=== PATIENT | male | born 1935 ===

== ENCOUNTER 2017-11-06 09:00 | Inpatient (IN) | payer OTHER, BC ==
[2017-11-05 16:09] VITALS: BMI 26.1
[2017-11-06 09:49] LABS: BASO % 0.4 % (0-2.0); EOS % 0.5 % (0-4.5); HEMATOCRIT 36.5 % (35.4-49); HEMOGLOBIN 11.9 GM/dL (11.7-16.9); LYMPH % 15.8 % (8-40); MCHC 32.6 g/dl (32.0-35.9); MEAN CELL VOLUME 92.2 fl (80-96); MEAN PLT VOLUME 9.7 fl (7.5-11.1); MONO % 8.5 % (3.8-10.2); NEUT % 74.8 % (42.8-82.8); PLATELET COUNT 175 K/MM3 (134-434); RBC 3.96 M/mm3 (4.00-5.60); RDW 16.9 % (11.9-15.9); WHITE BLOOD COUNT 11.2 K/mm3 (4.0-10.0)
[2017-11-06 10:08] LABS: INR 0.96 (0.82-1.09); PROTHROMBIN TIME (PATIENT) 10.9 SEC (9.98-11.88)
[2017-11-06 10:18] LABS: ALBUMIN 3.8 g/dl (3.4-5.0); ANION GAP 11 (8-16); BLOOD UREA NITROGEN 33 mg/dL (7-18); CALCIUM 8.9 mg/dL (8.5-10.1); CHLORIDE 108 mmol/L (98-107); CO2 21 mmol/L (21-32); CREATININE 1.9 mg/dL (0.7-1.3); GLUCOSE,RANDOM 99 mg/dL (74-106); POTASSIUM 4.7 mmol/L (3.5-5.1); SGOT/AST 23 U/L (15-37); SGPT/ALT 39 U/L (12-78); SODIUM 140 mmol/L (136-145)
[2017-11-06 10:21] LABS: ALK PHOS 90 U/L (45-117); TOT PROT 6.5 g/dl (6.4-8.2)
[2017-11-06] MEDS ORDERED: ROCURONIUM BROMIDE 50 MG/5 ML VIAL ONE (10:31)
[2017-11-06] MEDS ORDERED: MIDAZOLAM HCL 2 MG/2 ML SINGLE DOSE VIAL ONE (10:32)
[2017-11-06] MEDS ORDERED: SUCCINYLCHOLINE CHLORIDE 200 MG/10 ML VIAL ONE (10:32)
[2017-11-06] MEDS ORDERED: fentaNYL CITRATE 250 MCG/5 ML VIAL ONE (10:32)
[2017-11-06] MEDS ORDERED: DEXAMETHASONE SOD PHOSPHATE 4 MG/1 ML VIAL ONE ×2 (12:38→12:40)
[2017-11-06] MEDS ORDERED: ceFAZolin SODIUM 1 GM VIAL ONE ×2 (12:38→16:32)
[2017-11-06] MEDS ORDERED: ONDANSETRON 4 MG/2 ML VIAL ONE ×2 (12:41→16:32)
[2017-11-06] MEDS ORDERED: ceFAZolin SODIUM 1 GM VIAL IVPB ONE ×3 (12:50→16:50)
[2017-11-06] MEDS ORDERED: PROPOFOL 20 ML ONE ×6 (12:54→13:53)
[2017-11-06] MEDS ORDERED: BENZOIN/ALOE VERA/STORAX/TOLU 58 ML BOTTLE ONE (13:26)
[2017-11-06] MEDS ORDERED: THROMBIN (BOVINE) 5,000 UNIT VIAL TP ONE (15:39)
[2017-11-06] MEDS ORDERED: GELATIN, ABSORBABLE 100 EACH SPONGE TP ONE (15:39)
[2017-11-06] MEDS ORDERED: BUPIVACAINE HCL/PF 0.25% (2.5MG/ML) 10 ML VIAL ONE (16:54)
[2017-11-06] MEDS ORDERED: ONDANSETRON 4 MG/2 ML VIAL IVPUSH PRN ×2 (17:37→18:32)
[2017-11-06] MEDS ORDERED: oxyCODONE HCL 5 MG TABLET PO PRN (17:37)
[2017-11-06] MEDS ORDERED: ELECTROLYTE-148 SOLN 1,000 ML IV SCH (17:45)
[2017-11-06] MEDS ORDERED: ACETAMINOPHEN INJECTION 100 ML IVPB ONE (18:19)
--- NOTE | 2017-11-06 18:19 | OP ---
Operative Note - Note: Operative Date: 11/06/17 Pre-Operative Diagnosis: Cervical spinal stenosis. Cervical myelopathy Operation: 1. C5, C6 corpectomies. 2. C4, C7 partial corpectomy. 3. C4-5, C5-6 , C6-7 diskectomies. 4. C4-C7 instrumented anterior cervical fusion Post-Operative Diagnosis: Same as Pre-op Surgeon: Andrés Lawler Babbitter: Leroy Lawler Anesthesiologist/SLURRY MAN: Yulissa Flores Anesthesia: General Specimens Removed: 1. C4-5, C5-6, C6-7 disks. 2. C4, C5, C6, C7 bone Estimated Blood Loss (mls): 150 Drains & Tubes with Location: 1 x deep ELIDIA drain Fluid Volume Replaced (mls): 2,500 Operative Report Dictated: Yes
[2017-11-06] MEDS: ACETAMINOPHEN 1000 MG/100 ML VIAL (NON FORMULARY) IVPB SCH ×2 (18:30→23:07)
--- NOTE | 2017-11-06 18:30 | PN ---
Progress Note (short form) - Note Progress Note: Given nature of surgery, please provide strict airway monitoring and possible development of expanding hematoma in first 24 hrs. Lynn has been held since Saturday11/03/2017. 82M s/p C5 & C6 corpectomies, C4 & C7 partial corpectomies, C4-5 C5-6 C6-7 diskectomies, & C4-7 instrumented anterior cervical fusion POD #0. -Pain control; pt.'s mental status is sensitive to analgesia. -Mechanical DVT PPx. -Hold ALL chemical DVT PPx. for 72 hrs. post-op. -Incentive spirometry. -PT/OT/Rehab, OOB. -WBAT B/L UE & LE. -Diet: clear liquid diet; advanced to puree, then soft, then normal as tolerated. -Admit to medicine hospitalist team. -Admit to ICU for airway monitoring. -Will follow.
[2017-11-06] MEDS ORDERED: BISACODYL 10 MG SUPP.RECT RC PRN (18:32)
[2017-11-06] MEDS: LABETALOL HCL 5 MG/1 ML (100MG/20 ML VIAL) IVPUSH ONE ×3 (18:35→18:45)
[2017-11-06] MEDS ORDERED: GABAPENTIN 400 MG CAPSULE (FP) PO PRN (18:36)
[2017-11-06] MEDS ORDERED: D5-1/2NS+20 MEQ KCL - 20 MEQ/1,000 ML INFUS.BAG IV SCH (18:45)
[2017-11-06] MEDS ORDERED: D5-1/2NS+20 MEQ KCL - 1,000 ML IV SCH (18:45)
--- NOTE | 2017-11-06 22:21 | CONSULT ---
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 He was transferred to ICU for airway monitoring re c/f respiratory compromise if he develops an expanding hematoma. Xarelto was held 3 days prior to OR. - History Source History Provided By: Medical Record - Past Medical History Cardio/Vascular: Yes: AFIB, HTN, Hyperlipdemia Gastrointestinal: Yes: GERD Renal/: Yes: Renal Inusuff Musculoskeletal: Yes: Other (spinal stenosis) - Past Surgical History Past Surgical History: Yes: Appendectomy, Cholecystectomy - Alcohol/Substance Use Hx Alcohol Use: No - Smoking History Smoking history: Never smoked Home Medications - Allergies Allergies/Adverse Reactions: Allergies Allergy/AdvReac Type Severity Reaction Status Date / Time No Known Drug Allergies Allergy Verified 11/06/17 15:38 IV Contrast Dye Allergy Uncoded 11/06/17 15:38 - Home Medications Home Medications: Ambulatory Orders Amlodipine Besylate/Benazepril [Lotrel 5-10 mg Capsule] 1 tab PO DAILY 11/05/17 Atorvastatin Calcium [Lipitor] 20 mg PO DAILY 11/05/17 Colchicine 0.6 mg PO ASDIR 11/05/17 Folic Acid - 1 mg PO DAILY 11/05/17 Gabapentin 400 mg PO PRN PRN 11/05/17 Omeprazole Magnesium [Prilosec Otc] 20 mg PO ONCE 11/05/17 Rivaroxaban [Xarelto -] 15 mg PO DAILY 11/05/17 Family Disease History - Family Disease History Family History: Unremarkable Review of Systems - Review of Systems Constitutional: reports: No Symptoms Eyes: reports: No Symptoms HENT: reports: No Symptoms Cardiovascular: reports: No Symptoms Respiratory: reports: No Symptoms Gastrointestinal: reports: No Symptoms Genitourinary: reports: Incontinence Musculoskeletal: reports: Back Pain Integumentary: reports: No Symptoms Neurological: reports: Numbness (BLE), Parasthesia Endocrine: reports: No Symptoms Hematology/Lymphatic: reports: Easily Bruised Psychiatric: reports: No Symptoms Physical Exam Vital Signs: Vital Signs Temperature 98.3 F 11/06/17 20:25 Pulse Rate 66 11/06/17 20:25 Respiratory Rate 16 11/06/17 21:00 Blood Pressure 144/58 11/06/17 20:25 O2 Sat by Pulse Oximetry (%) 100 11/06/17 21:00 Constitutional: Yes: Well Nourished, No Distress, Calm Eyes: Yes: PERRL HENT: Yes: Atraumatic, Normocephalic Neck: Yes: Supple, Trachea Midline Cardiovascular: Yes: Pulse Irregular, S1, S2 Respiratory: Yes: WNL Gastrointestinal: Yes: WNL Renal/: Yes: WNL, Vill[place]uerte Present Extremities: Yes: WNL Edema: No Peripheral Pulses WNL: Yes Integumentary: Yes: Bruising Wound/Incision: Yes: Well Approximated, Other (ELIDIA to rt neck with small amt bloody drainage) ...Motor Strength: WNL Psychiatric: Yes: WNL, Alert, Oriented Labs: CBC, BMP 11/06/17 09:40 11/06/17 09:27 CBC,CMP WBC 11.2 K/mm3 (4.0-10.0) H 11/06/17 09:40 RBC 3.96 M/mm3 (4.00-5.60) L 11/06/17 09:40 Hgb 11.9 GM/dL (11.7-16.9) 11/06/17 09:40 Hct 36.5 % (35.4-49) 11/06/17 09:40 MCV 92.2 fl (80-96) 11/06/17 09:40 MCH 30.0 pg (25.7-33.7) 11/06/17 09:40 MCHC 32.6 g/dl (32.0-35.9) 11/06/17 09:40 RDW 16.9 % (11.9-15.9) H 11/06/17 09:40 Plt Count 175 K/MM3 (134-434) 11/06/17 09:40 MPV 9.7 fl (7.5-11.1) 11/06/17 09:40 Neutrophils % 74.8 % (42.8-82.8) 11/06/17 09:40 Lymphocytes % 15.8 % (8-40) 11/06/17 09:40 Monocytes % 8.5 % (3.8-10.2) 11/06/17 09:40 Eosinophils % 0.5 % (0-4.5) 11/06/17 09:40 Basophils % 0.4 % (0-2.0) 11/06/17 09:40 Sodium 140 mmol/L (136-145) 11/06/17 09:27 Potassium 4.7 mmol/L (3.5-5.1) 11/06/17 09:27 Chloride 108 mmol/L (98-107) H 11/06/17 09:27 Carbon Dioxide 21 mmol/L (21-32) 11/06/17 09:27 Anion Gap 11 (8-16) 11/06/17 09:27 BUN 33 mg/dL (7-18) H 11/06/17 09:27 Creatinine 1.9 mg/dL (0.7-1.3) H 11/06/17 09:27 Creat Clearance w eGFR 33.94 (>60) 11/06/17 09:27 Random Glucose 99 mg/dL (74-106) 11/06/17 09:27 Calcium 8.9 mg/dL (8.5-10.1) 11/06/17 09:27 Total Bilirubin 2.0 mg/dL (0.2-1.0) H 11/06/17 09:27 AST 23 U/L (15-37) 11/06/17 09:27 ALT 39 U/L (12-78) 11/06/17 09:27 Alkaline Phosphatase 90 U/L (45-117) 11/06/17 09:27 Total Protein 6.5 g/dl (6.4-8.2) 11/06/17 09:27 Albumin 3.8 g/dl (3.4-5.0) 11/06/17 09:27 Initial Vital Signs Temp Pulse Resp BP 97.4 F L 77 18 119/58 11/06/17 10:09 11/06/17 10:09 11/06/17 10:09 11/06/17 10:09 Current Medications Acetaminophen (Ofirmev Injection -) 1,000 mg IVPB Q6H-IV MAN Stop: 11/07/17 09:01 Last Admin: 11/06/17 18:30 Dose: 1,000 mg Amlodipine Besylate (Norvasc -) 5 mg PO DAILY MAN Bisacodyl (Dulcolax Suppository -) 10 mg RC DAILY PRN PRN Reason: CONSTIPATION Fentanyl (Sublimaze Injection -) 25 mcg IVPUSH [id number] PRN PRN Reason: PAIN-PACU ORDER X 4 DOSES ONLY Last Admin: 11/06/17 19:25 Dose: 25 mcg Gabapentin (Neurontin -) 400 mg PO DAILY PRN PRN Reason: PAIN LEVEL 4 - 6 Cefazolin Sodium (Ancef -) 1 gm in 10 mls @ 100 mls/hr IVPUSH Q8H-IV MAN Stop: 11/07/17 18:05 Potassium Chloride/Dextrose/Sod Cl (D5-1/2ns+20 Meq Kcl -) 20 meq in 1,000 mls @ 100 mls/hr IV ASDIR MAN Last Admin: 11/06/17 20:10 Dose: 100 mls/hr Potassium Chloride/Dextrose/Sod Cl (D5-1/2ns+20 Meq Kcl -) 1,000 mls @ 42 mls/ hr IV ASDIR MAN Lisinopril (Prinivil) 10 mg PO DAILY MAN Ondansetron HCl (Zofran Injection) 4 mg IVPUSH Q6H PRN PRN Reason: NAUSEA AND/OR VOMITING Ondansetron HCl (Zofran Injection) 4 mg IVPUSH Q6H PRN PRN Reason: NAUSEA AND/OR VOMITING Oxycodone HCl (Roxicodone -) 5 mg PO Q4H PRN PRN Reason: Pain Level > 4 Stop: 11/09/17 17:36 Problem List - Problems (1) History of spinal fusion Code(s): Z98.1 - ARTHRODESIS STATUS (2) A-fib Code(s): I48.91 - UNSPECIFIED ATRIAL FIBRILLATION Assessment/Plan 82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 He was transferred to ICU for airway monitoring re c/f respiratory compromise if he develops an expanding hematoma. Plan: -Monitor surgical site for s+s of bleeding/hematoma -Maintain ELIDIA bulb suction, monitor output -Cont O2 support as needed for O2 sat >92% -Neurochecks -Pain management -NPO except meds o/n; ice chips for comfort -Hold all anticoagulation for now -cont antihypertensive and HLD meds -SCDs LINDSEY Chiang CC time 35mins
[2017-11-07] MEDS: CEFAZOLIN 1 GM PUSH 1 GM/10 ML DISP.SYRIN IVPUSH SCH ×2 (02:19→11:51)
[2017-11-07] MEDS: ACETAMINOPHEN 1000 MG/100 ML VIAL (NON FORMULARY) IVPB SCH (03:21)
[2017-11-07 06:19] LABS: HEMATOCRIT 28.3 % (35.4-49); HEMOGLOBIN 9.2 GM/dL (11.7-16.9); MCH 30.1 pg (25.7-33.7); MCHC 32.7 g/dl (32.0-35.9); MEAN CELL VOLUME 92.3 fl (80-96); MEAN PLT VOLUME 9.5 fl (7.5-11.1); PLATELET COUNT 156 K/MM3 (134-434); RBC 3.06 M/mm3 (4.00-5.60); RDW 16.9 % (11.9-15.9); WHITE BLOOD COUNT 13.7 K/mm3 (4.0-10.0)
[2017-11-07 06:44] LABS: ANION GAP 9 (8-16); BLOOD UREA NITROGEN 33 mg/dL (7-18); CALCIUM 7.6 mg/dL (8.5-10.1); CHLORIDE 106 mmol/L (98-107); CO2 23 mmol/L (21-32); CREATININE 1.7 mg/dL (0.7-1.3); GLUCOSE,RANDOM 212 mg/dL (74-106); POTASSIUM 4.7 mmol/L (3.5-5.1); SODIUM 138 mmol/L (136-145)
--- NOTE | 2017-11-07 08:00 | PN ---
Physical Exam: SUBJECTIVE: Doing well this AM, eating, speaking, and manipulating neck without difficulty. OBJECTIVE: Vital Signs Period Temp Pulse Resp BP Sys/Solorio Pulse Ox Last 24 Hr 97.4 F-99.1 F 60-81 14-18 117-163/47-70 95-100 GENERAL: The patient is awake, alert, and fully oriented, in no acute distress. HEAD: Normal with no signs of trauma. EYES: PERRL, extraocular movements intact, sclera anicteric, conjunctiva clear. No ptosis. ENT: Ears normal, nares patent, oropharynx clear without exudates, moist mucous membranes. NECK: Trachea midline, incision site cleand/ dry/ and intact. improved range of motion according to patient, supple. LUNGS: Breath sounds equal, clear to auscultation bilaterally, no wheezes, no crackles, no accessory muscle use. HEART: Regular rate and rhythm, S1, S2 without murmur, rub or gallop. ABDOMEN: Soft, nontender, nondistended, normoactive bowel sounds, no guarding, no rebound, no hepatosplenomegaly, no masses. EXTREMITIES: 2+ pulses, warm, well-perfused, no edema. Bruising on left hand near IV site. NEUROLOGICAL: Able to walk without too much difficulty. PSYCH: Normal mood, normal affect. SKIN: Warm, dry, normal turgor, no rashes or lesions noted Laboratory Results - last 24 hr 11/06/17 11/06/17 11/06/17 09:27 09:27 09:27 WBC RBC Hgb Hct MCV MCH MCHC RDW Plt Count MPV Neutrophils % Lymphocytes % Monocytes % Eosinophils % Basophils % PT with INR 10.90 INR 0.96 PTT (Actin FS) Sodium 140 Potassium 4.7 Chloride 108 H Carbon Dioxide 21 Anion Gap 11 BUN 33 H Creatinine 1.9 H Creat Clearance w eGFR 33.94 Random Glucose 99 Calcium 8.9 Total Bilirubin 2.0 H AST 23 ALT 39 Alkaline Phosphatase 90 Total Protein 6.5 Albumin 3.8 Blood Type A POSITIVE Antibody Screen Negative 11/06/17 11/06/17 11/06/17 09:27 09:40 11:36 WBC 11.2 H RBC 3.96 L Hgb 11.9 Hct 36.5 MCV 92.2 MCH 30.0 MCHC 32.6 RDW 16.9 H Plt Count 175 MPV 9.7 Neutrophils % 74.8 Lymphocytes % 15.8 Monocytes % 8.5 Eosinophils % 0.5 Basophils % 0.4 PT with INR INR PTT (Actin FS) 24.0 L Sodium Potassium Chloride Carbon Dioxide Anion Gap BUN Creatinine Creat Clearance w eGFR Random Glucose Calcium Total Bilirubin AST ALT Alkaline Phosphatase Total Protein Albumin Blood Type A POSITIVE Antibody Screen 11/07/17 11/07/17 05:15 05:15 WBC 13.7 H RBC 3.06 L D Hgb 9.2 L D Hct 28.3 L D MCV 92.3 MCH 30.1 MCHC 32.7 RDW 16.9 H Plt Count 156 MPV 9.5 Neutrophils % Lymphocytes % Monocytes % Eosinophils % Basophils % PT with INR INR PTT (Actin FS) Sodium 138 Potassium 4.7 Chloride 106 Carbon Dioxide 23 Anion Gap 9 BUN 33 H Creatinine 1.7 H Creat Clearance w eGFR Random Glucose 212 H D Calcium 7.6 L Total Bilirubin AST ALT Alkaline Phosphatase Total Protein Albumin Blood Type Antibody Screen Active Medications Generic Name Dose Route Start Last Admin Trade Name Freq PRN Reason Stop Dose Admin Acetaminophen 1,000 mg 11/06/17 18:30 11/07/17 03:21 Ofirmev Injection - IVPB 11/07/17 09:01 1,000 mg Q6H-IV MAN Administration Amlodipine Besylate 5 mg 11/07/17 10:00 Norvasc - PO DAILY MAN Bisacodyl 10 mg 11/06/17 18:32 Dulcolax Suppository - RC DAILY PRN CONSTIPATION Fentanyl 25 mcg 11/06/17 17:37 11/06/17 19:25 Sublimaze Injection - IVPUSH 25 mcg [id number] PRN Administration PAIN-PACU ORDER X 4 DOSES ONLY Gabapentin 400 mg 11/06/17 18:36 Neurontin - PO DAILY PRN PAIN LEVEL 4 - 6 Cefazolin Sodium 1 gm in 10 mls @ 100 mls/hr 11/07/17 02:00 11/07/17 02:19 Ancef - IVPUSH 11/07/17 18:05 100 mls/hr Q8H-IV MAN Administration Potassium Chloride/Dextrose/Sod Cl 20 meq in 1,000 mls @ 100 mls/hr 11/06/17 18:45 11/06/17 20:10 D5-1/2ns+20 Meq Kcl - IV 100 mls/hr ASDIR MAN Administration Potassium Chloride/Dextrose/Sod Cl 1,000 mls @ 42 mls/hr 11/06/17 18:45 D5-1/2ns+20 Meq Kcl - IV ASDIR MAN Lisinopril 10 mg 11/07/17 10:00 Prinivil PO DAILY MAN Ondansetron HCl 4 mg 11/06/17 17:37 Zofran Injection IVPUSH Q6H PRN NAUSEA AND/OR VOMITING Ondansetron HCl 4 mg 11/06/17 18:32 Zofran Injection IVPUSH Q6H PRN NAUSEA AND/OR VOMITING Oxycodone HCl 5 mg 11/06/17 17:37 Roxicodone - PO 11/09/17 17:36 Q4H PRN Pain Level > 4 ASSESSMENT/PLAN: Very pleasant 82 y/o male, retired orthopedic with PMHx spondylolisthesis and spinal fusion s/p multiple spinal decompression surgeries, A-fib (Xarelto), HTN , HLD, GERD POD 1 s/p C5-C6 corpectomies; C4 & C7 partial corpectomies; C4-5, C5 -6, C6-7 diskectomies; and C4-C7 instrumented anterior cervical fusion in the ICU for airway monitoring in the event of respiratory compromise from a potential expanding hematoma. He is currently stabel without evidence of hematoma. Neuro: - pain controlled without use of PRNs CV: - Restart home anti-htns - hold Xarelto indefinitely per cards and Terence - hold Aspirin until Saturday morning per Terence MSK: - no evidence of hematoma or bleeding - ELIDIA bulb removed by Terence this AM - wound C/D/I - neck ROM good without pain - PT evaluated patient Heme: - CBC dropped two units with equivalent drop in platelets while on maintenance fluids indicating likely dilutional etiology FEN: - Tolerating PO - DC fluids Dispo: - Spoke to Terence and he is OK with patient leaving off of Xarelto and with ASA held for three days - Spoke with Scott of cardiology and he is OK with patient going home as well per above Visit type - Emergency Visit Emergency Visit: No - New Patient This patient is new to me today: Yes Date on this admission: 11/07/17 - Critical Care Critical Care patient: Yes Total Critical Care Time (in minutes): 35 Critical Care Statement: The care of this patient involved high complexity decision making to prevent further life threatening deterioration of the patient 's condition and/or to evaluate & treat vital organ system(s) failure or risk of failure.
[2017-11-07] MEDS ORDERED: PATIENT'S OWN MEDICATION (NON-FORMULARY) (Amlodipine Besylate/Benazepril [Lotrel 5-10 Mg C PO SCH (10:00)
[2017-11-07] MEDS ORDERED: LISINOPRIL 10 MG TABLET (FP) PO SCH (10:00)
[2017-11-07] MEDS ORDERED: amLODIPine BESYLATE 5 MG TABLET (FP) PO SCH (10:00)
--- NOTE | 2017-11-07 11:38 | PN ---
Progress Note (short form) - Note Progress Note: Anesthesia POD#1 S/P C5-C6 discectomy under GA VSS,sitting in chair,no pain, no N/V. No complications to anesthesia seen. Gabrielle Casas MD.
--- NOTE | 2017-11-07 12:20 | OP ---
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 OPERATION PERFORMED: 1. Anterior cervical approach. 2. Anterior corpectomy C5-6. 3. Partial corpectomy C7. 4. Associated diskectomy C4-5, C5-6, C6-7. 5. Insertion of Harms cage C4-C7. 6. Anterior arthrodesis C4-C7. 7. Anterior plating C4-C7. ANESTHESIA: General. ANTIBIOTICS GIVEN: Kefzol 2 g, 1 g Kefzol given at the end of the procedure. Neuromonitoring utilized. BLOOD LOSS: Approximately 150 mL. OPERATION DETAILS: Patient correctly identified, brought to the operating room. Patient initially left on a stretcher. Neuromonitoring levels were taken at that point. This showed well-maintained motor evoked potentials, but SSEPs were significantly down. We then positioned him supine with a bolster behind the scapulae. On extension of the neck there was no change in neuromonitoring. Once that happened, I placed him onto the operating room table, placed a shoulder roll behind him and accurately placed the pillow behind the head, extending the neck. No change in neuromonitoring achieved. Imaging was available for intraoperative evaluation. Timeout was called. An anterior cleansing of the skin with Betadine scrub solution, wiped off with alcohol, DuraPrep applied, a window drape applied. The dissection was made at the level of the cricothyroid interval. The platysma was transected. A longitudinal dissection between the visceral vessels was maintained, extended right down to the longus colli. The longus colli was lifted off the anterior vertebral bodies. An 18-gauge bent needle was placed into the interspace of L3-4. This was verified on x-ray and the appropriate levels to be dissected noted. Cosby retractor system utilized for medial and lateral retraction. The retractors were placed in the muscle belly of longus colli. Stratton pin was placed into C4 as well as into C7, a distractor device applied. Once this had been achieved, the disks of C4-5, C5-6, C6-7 were resected. Massive osteophytes and lumps of bone anteriorly noted. Using a matchstick yasmine-tip bur, we cut the bone at both the left and right-hand side and harvested the central portion of cancellous bone of vertebral bodies appropriately. The entire decompression was then completed using a 50-mm smooth yasmine bur. The entire posterior longitudinal ligament was resected. The cord was freed completely. So severe was the stenosis that an indent into the dura was performed. This thus completed a full corpectomy C5, C6, and partial corpectomy C7. A fiber mesh titanium cage, original proprietor [employer], was packed with bone graft. This was autologous bone graft that was harvested from the bone bed , locked solidly into the C4 and into the C7 vertebral bodies. The distractor device was then removed. The Stratton pin was removed, the bleeding holes sealed with bone wax. A size 43 Simplicity cervical plate was utilized, solid fixation achieved. Two screws at C4, two in C7, and they locked appropriately. The screws measured 12 mm. Throughout the procedure, because of the use of Xarelto, oozing from the tissues was readily noted. A large drain was placed. The wounds were thoroughly lavaged throughout the procedure. There were no neuromonitoring abnormalities throughout except for dropoff of the C5 nerve root to the right deltoid during the operation, but this all recovered. His entire neuromonitoring remained baseline. No deterioration and certainly no improvement. The wounds were closed as follows. Investing layer of fascia 2-0 Vicryl, subcutaneous 2-0 and 3-0 Vicryl, skin 3-0 Monocryl and Steri-Strips. DRAIN: Large Hemovac-type drain x1. OVERALL COMMENT: Extremely severe stenosis. Operation went well, technically without any problems. We await spinal cord recovery and ingrowth of bone. MD HERMES Frankel/[id number] ALDAIR
[2017-11-07 13:18] VITALS: BP 134/52; PULSE 66; TEMP 98.2
--- NOTE | 2017-11-07 13:59 | CON.CARD ---
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 A zio patch showed several episodes of brief paf without symptoms. s/p spine surgery 2012 complicated by delerium and PAF, micturiction syncope 2013, fall 01/21/14 with dislocation of his right hip prosthesis s/p reduction under anesthesia at [facility]. Redislocated his right hip again may 2014. Complicated by brief Afib. Again dislocated his hip July 2014. He is s/p right hip revision, episode of near syncope in the heat. No head trauma. No recurrence. He had a prodrome of dizziness and lightheadedness. He is s/p CT myelogram for parasthesias of the legs. No invervention needed. He has had some unsteadiness and lightheadedness. His dizzy episodes are not accompanied with changes in HR or BP. He has also had some memory issues. His parasthesias are worse. He was seen by Dr Mondragon of neurology with a negative workup. PVR's were normal. He believes that his lower extremity discomfort is due to loss of height and his ribs sitting on his pelvis. He is numb but has normal motor strength. His numbness persists and the tingling is worse. He also has lower limb symptoms. He also has severe cervical myelopathy and is s/p surgery. Denies any cardiac symptoms of chest pain, orthopnea, pnd or edema. Walking. Echocardiogram 07/14/15: Interpretation Summary The patient was in atrial fibrillation during this exam. Insufficient tricuspid regurgitation to quantify pulmonary artery pressure. Mild left atrial dilatation. Normal left ventricular size. Normal left ventricular wall motion and ejection fraction. Mild right atrial dilatation. Normal right ventricular size. Normal right ventricular function. Fibrocalcific disease of the aortic valve without stenosis. Mild aortic valve regurgitation. Mitral annular calcification. Mild mitral valve regurgitation. Nuclear Stress Test 07/22/13: Normal myocardial perfusion with diaphragmatic attenuation artifact. - History Source History Provided By: Patient, Medical Record Limitations to Obtaining History: No Limitations - Past Medical History Cardio/Vascular: Yes: AFIB, HTN, Hyperlipdemia Gastrointestinal: Yes: GERD Renal/: Yes: Renal Inusuff Musculoskeletal: Yes: Other (spinal stenosis) - Past Surgical History Past Surgical History: Yes: Appendectomy, Cholecystectomy - Alcohol/Substance Use Hx Alcohol Use: No - Smoking History Smoking history: Never smoked Home Medications - Allergies Allergies/Adverse Reactions: Allergies Allergy/AdvReac Type Severity Reaction Status Date / Time No Known Drug Allergies Allergy Verified 11/06/17 15:38 IV Contrast Dye Allergy Uncoded 11/06/17 15:38 - Home Medications Home Medications: Ambulatory Orders Amlodipine Besylate/Benazepril [Lotrel 5-10 mg Capsule] 1 tab PO DAILY 11/05/17 Atorvastatin Calcium [Lipitor] 20 mg PO DAILY 11/05/17 Colchicine 0.6 mg PO ASDIR 11/05/17 Folic Acid - 1 mg PO DAILY 11/05/17 Gabapentin 400 mg PO PRN PRN 11/05/17 Omeprazole Magnesium [Prilosec Otc] 20 mg PO ONCE 11/05/17 Rivaroxaban [Xarelto -] 15 mg PO DAILY 11/05/17 Review of Systems - Review of Systems Constitutional: reports: No Symptoms Eyes: reports: No Symptoms HENT: reports: No Symptoms Neck: reports: No Symptoms Cardiovascular: reports: No Symptoms Respiratory: reports: No Symptoms Gastrointestinal: reports: No Symptoms Genitourinary: reports: No Symptoms Vital Signs: Vital Signs Temperature 98.2 F 11/07/17 12:00 Pulse Rate 66 11/07/17 12:00 Respiratory Rate 18 11/07/17 12:00 Blood Pressure 134/52 11/07/17 12:00 O2 Sat by Pulse Oximetry (%) 93 L 11/07/17 10:40 Constitutional: Yes: Well Nourished, No Distress Eyes: Yes: Conjunctiva Clear, EOM Intact HENT: Yes: Atraumatic, Normocephalic Neck: Yes: Trachea Midline Respiratory: Yes: CTA Bilaterally Gastrointestinal: Yes: Normal Bowel Sounds, Soft Cardiovascular: Yes: Pulse Irregular JVD: No Carotid Bruit: No PMI: Non-Displaced Heart Sounds: Yes: S1, S2 Edema: No Peripheral Pulses WNL: Yes - Other Data Labs, Other Data: CBC, BMP 11/07/17 05:15 11/07/17 05:15 INR, PTT INR 0.96 (0.82-1.09) 11/06/17 09:27 Imaging - Results EKG: Report Reviewed (afib nssttw changes) Problem List - Problems (1) A-fib Assessment/Plan: He is rate controlled off of medications. No need for change at this point. He will continue amlodipine. Hold Xarelto for the foreseeable future to heal from surgery. DC home today. Code(s): I48.91 - UNSPECIFIED ATRIAL FIBRILLATION Qualifiers: Atrial fibrillation type: chronic Qualified Code(s): I48.2 - Chronic atrial fibrillation
--- NOTE | 2017-11-07 14:34 | PN ---
Teaching Attending Note Name of Resident: Parag Valentin ATTENDING PHYSICIAN STATEMENT I saw and evaluated the patient. I reviewed the resident's note and discussed the case with the resident. I agree with the resident's findings and plan as documented. SUBJECTIVE: Feels overall better. Reports minimal neck discomfort. No CP or SOB. No identified airway issues overnight. H&H stable. Intake & Output 11/04/17 11/05/17 11/06/17 11/07/17 23:59 23:59 23:59 23:59 Intake Total 2900 1000 Output Total 1125 400 Balance 1775 600 Weight 182 lb 182 lb Last Vital Signs Temp Pulse Resp BP Pulse Ox 98.2 F 66 18 134/52 93 L 11/07/17 12:00 11/07/17 12:00 11/07/17 12:00 11/07/17 12:00 11/07/17 10:40 Active Medications Amlodipine Besylate (Norvasc -) 5 mg PO DAILY [facility] Last Admin: 11/07/17 10:36 Dose: 5 mg Bisacodyl (Dulcolax Suppository -) 10 mg RC DAILY PRN PRN Reason: CONSTIPATION Fentanyl (Sublimaze Injection -) 25 mcg IVPUSH [id number] PRN PRN Reason: PAIN-PACU ORDER X 4 DOSES ONLY Last Admin: 11/06/17 19:25 Dose: 25 mcg Gabapentin (Neurontin -) 400 mg PO DAILY PRN PRN Reason: PAIN LEVEL 4 - 6 Cefazolin Sodium (Ancef -) 1 gm in 10 mls @ 100 mls/hr IVPUSH Q8H-IV MAN Stop: 11/07/17 18:05 Last Admin: 11/07/17 11:51 Dose: 100 mls/hr Potassium Chloride/Dextrose/Sod Cl (D5-1/2ns+20 Meq Kcl -) 20 meq in 1,000 mls @ 100 mls/hr IV ASDIR MAN Last Admin: 11/06/17 20:10 Dose: 100 mls/hr Potassium Chloride/Dextrose/Sod Cl (D5-1/2ns+20 Meq Kcl -) 1,000 mls @ 42 mls/ hr IV ASDIR MAN Lisinopril (Prinivil) 10 mg PO DAILY [facility] Last Admin: 11/07/17 10:36 Dose: 10 mg Ondansetron HCl (Zofran Injection) 4 mg IVPUSH Q6H PRN PRN Reason: NAUSEA AND/OR VOMITING Ondansetron HCl (Zofran Injection) 4 mg IVPUSH Q6H PRN PRN Reason: NAUSEA AND/OR VOMITING Oxycodone HCl (Roxicodone -) 5 mg PO Q4H PRN PRN Reason: Pain Level > 4 Stop: 11/09/17 17:36 Constitutional: Yes: Awake and alert, NAD Eyes: Yes: PERRL HENT: Yes: Atraumatic, Normocephalic Neck: Yes: Supple, Trachea Midline Cardiovascular: Yes: Pulse Irregular, S1, S2 Respiratory: Yes: WNL Gastrointestinal: Yes: WNL Renal/: Yes: WNL Extremities: Yes: WNL Edema: No Peripheral Pulses WNL: Yes Integumentary: Yes: Bruising Wound/Incision: Yes: Well Approximated ...Motor Strength: WNL Psychiatric: Yes: WNL, Alert, Oriented Labs: Laboratory Results - last 24 hr 11/07/17 11/07/17 05:15 05:15 WBC 13.7 H RBC 3.06 L D Hgb 9.2 L D Hct 28.3 L D MCV 92.3 MCH 30.1 MCHC 32.7 RDW 16.9 H Plt Count 156 MPV 9.5 Sodium 138 Potassium 4.7 Chloride 106 Carbon Dioxide 23 Anion Gap 9 BUN 33 H Creatinine 1.7 H Random Glucose 212 H D Calcium 7.6 L Problem List - Problems (1) History of spinal fusion Code(s): Z98.1 - ARTHRODESIS STATUS (2) A-fib Code(s): I48.91 - UNSPECIFIED ATRIAL FIBRILLATION Assessment/Plan OOB To chair Ambulate as tolerated Incentive Spirometry Pain control D/C planning per surgery Dr Evangelista
--- NOTE | 2017-11-08 15:46 | PATH ---
Surgical Pathology Report Patient Name: DUSTIN SAAVEDRA [facility]. Rec. #: [id number] /Age/Gender: 1935 (Age: 82) / M Account: [id number] Location: [facility] [address] THRU ORDER TAKER Taken: 11/06/2017 Received: 11/07/2017 Reported: 11/08/2017 Physicians: Andrés Lawler M.D. Specimen(s) Received DISC C5 Clinical History Cervical disc disorder Final Diagnosis INTERVERTEBRAL DISC, C5, PARTIAL EXCISION: PORTIONS OF BONE, AND CARTILAGE CONSISTENT WITH INTERVERTEBRAL DISC. Electronically Signed Joseph Segovia M.D. Gross Description Received in formalin labeled "disc C5," is a 0.7 x 0.6 x 0.2 cm aggregate of mirza fragments of fibrocartilaginous tissue. The specimen is entirely submitted in one cassette. 11/07/201711/07/2017
== END 2017-11-07 15:10 | disposition home or self-care (01) | DRG 472 ==
LOC: JSAMEDAYSX 09:00 → EDSTATUS 13:30 → JICU 20:39
PROVIDERS: ADMIT Orthopaedic Surgery Orthopaedic Surgery of the Spine; ATTEND Orthopaedic Surgery Orthopaedic Surgery of the Spine
PROC: 0RT30ZZ Resection of Cervical Vertebral Disc, Open Approach (ICD-10-PCS; principal; 2017-11-07)
PROC: 0RG40A0 Fusion of Cervicothoracic Vertebral Joint with Interbody Fusion Device, Anterior Approach, Anterior Column, Open Approach (ICD-10-PCS; 2017-11-07)
PROC: 00NW0ZZ Release Cervical Spinal Cord, Open Approach (ICD-10-PCS; 2017-11-07)
DX: M48.02 Spinal stenosis, cervical region (principal); M47.12 Other spondylosis with myelopathy, cervical region; I48.91 Unspecified atrial fibrillation; E11.9 Type 2 diabetes mellitus without complications; E78.5 Hyperlipidemia, unspecified; K21.9 Gastro-esophageal reflux disease without esophagitis; N28.9 Disorder of kidney and ureter, unspecified; Z79.01 Long term (current) use of anticoagulants
CPT/HCPCS: 36415; 76000-TC; 80048; 80053; 85025; 85027; 85610; 85730; 86850; 86900; 86901; 88304-TC; 94010; 94760; 97116-GP; 97161-GP